=== PATIENT | female | born 1955 | race Caucasian/White ===

== ENCOUNTER 2024-06-18 22:04 | Emergency (ER) | payer MEDICARE, MEDICAID ==
[~2024-06-18] VITALS: Ht 160 cm; Wt 60.0 kg
[2024-06-18 22:14] VITALS: O2SAT 95
[2024-06-18 23:04] LABS: BASOPHILS % 0.6 % (0.0-2.0); EOSINOPHILS % 0.1 % (0.0-5.0); HEMATOCRIT. 38.7 % (36.0-48.0); HEMOGLOBIN. 12.5 g/dL (12.0-16.0); LYMPHOCYTES % 14.5 % (20.0-50.0); MEAN CORPUSCULAR HEMOGLOBIN 27.6 pg (28.0-32.0); MEAN CORPUSCULAR HGB CONC 32.2 g/dL (31.0-37.0); MEAN CORPUSCULAR VOLUME 85.7 fL (81.0-99.0); MEAN PLATELET VOLUME 8.2 fl (7.4-10.4); MONOCYTES % 7.6 % (2.0-8.0); NEUTROPHILS % 77.2 % (40.0-76.0); PLATELET 320 x1000/uL (130-400); RED BLOOD CELL COUNT 4.52 mill/uL (4.2-5.4); WHITE BLOOD COUNT 11.4 x1000/uL (4.5-11.0)
[2024-06-18 23:10] LABS: CHLORIDE 102 mEq/L (98-107); POTASSIUM 3.9 mEq/L (3.5-5.1); SODIUM 137 mEq/L (136-145)
[2024-06-18 23:11] LABS: CALCIUM 9.2 mg/dL (8.7-10.4); CARBON DIOXIDE 24 mEq/L (21-32)
[2024-06-18 23:13] LABS: INR 0.9; PROTHROMBIN TIME 10.5 sec (9.6-11.0)
[2024-06-18 23:16] LABS: CREATININE 1.1 mg/dL (0.6-1.0); GLUCOSE 165 mg/dL (70-105); UREA NITROGEN BLOOD 18 mg/dL (9-23)
[2024-06-18 23:18] LABS: ALANINE AMINOTRANSFERASE 17 IU/L (10-49); ALBUMIN 4.2 g/dL (3.2-4.8); ASPARTATE AMINOTRANSFERASE 22 IU/L (<34); BILIRUBIN DIRECT 0.3 mg/dL (<=3.0); BILIRUBIN TOTAL 0.8 mg/dL (0.1-1.0); PROTEIN TOTAL 7.1 g/dL (6.0-8.3)
[2024-06-18 23:19] LABS: ETHANOL BLOOD < 10 mg/dL (<10)
[2024-06-18 23:32] LABS: TROPONIN I HIGH SENSITIVITY 5 ng/L (3.0-34)
[2024-06-19] MEDS ORDERED: ACET-2708 MT (02:04)
[2024-06-19] MEDS ORDERED: MAG355OR21 MT (02:04)
[2024-06-19] MEDS ORDERED: ONDA4TAB50 MT (02:04)
[2024-06-19 02:15] VITALS: BP 112/69; PULSE 85; RESP 17; TEMP 36.61404; O2SAT 100
[2024-06-19] MEDS: MAGNESIUM/ALUMINUM HYDROXIDE/SIMETHICONE 30ML UDC PO NR (03:30)
[2024-06-19] MEDS: ACETAMINOPHEN 325MG TABLET PO NR (03:30)
[2024-06-19] MEDS: MAGNESIUM/ALUMINUM HYDROXIDE/SIMETHICONE 30ML UDC PO ONE (03:45)
[2024-06-19] MEDS: ACETAMINOPHEN 325MG TABLET PO ONE (03:45)
== END 2024-06-19 10:05 ==
LOC: ER 22:04
DX: R10.13 Epigastric pain (principal); I50.9 Heart failure, unspecified; J44.9 Chronic obstructive pulmonary disease, unspecified; F41.9 Anxiety disorder, unspecified; Z00.00 Encounter for general adult medical examination without abnormal findings; Z86.59 Personal history of other mental and behavioral disorders
CPT/HCPCS: 36415; 71045; 74176; 80048; 80076; 80320; 84484; 85025; 99284; G0480